=== PATIENT | female | born 1960 | race Caucasian/White ===

== ENCOUNTER → 2017-12-01 | Outpatient (CLI) | payer OTHER ==
[~2017-12-01] MED LIST: ALLERGY RELIEF1 EAC3 PO; ASPIRIN325 PO; CLONAZEPAM 0.50.5 M1 PO; FIBER TABS625 MG PO; FISH OIL 1,0001 EAC8 PO; GLUCOSAMINE &1 EAC1 PO; INDERAL LA 80 M80 M1 PO; LEVOTHYROXIN0.025 MG PO; METFORMIN HCL500 MG PO; NAMENDA XR28 MG PO; NAMENDA XR7 MG PO; PAXIL10 MG PO; VITAMIN B-12500 MCG PO; VITAMIN D3400 UNIT PO; VITAMINC500 PO; WELLBUTRIN SR100 MG PO; ZONEGRAN100 MG PO
== END ==
LOC: M.RAD 13:24
DX: C50.911 Malignant neoplasm of unspecified site of right female breast (principal)

== ENCOUNTER → 2018-01-03 | Outpatient (CLI) | payer OTHER ==
--- NOTE | 2018-01-13 13:49 | ONC ---
[place] [address] RADIATION ONCOLOGY NOTE Name: JHOANALEATHA A Room: [facility]#: [id number] Admission: 01/03/18 Attend Phys: Ehsan Wang MD Discharge: Date of : 62 Report #: [id number] THIS REPORT FOR: //name// CC: Ehsan Choudhury MD DATE OF SERVICE: 01/03/2018 REFERRING PHYSICIANS: Include Martin Cohn MD; Dr. Oliva, and Ryan Choudhury MD. [facility] phone is [phone]. 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 Radiation treatments were completed on 03/26/2015. INTERVAL NOTE: The patient denied having any suspicious palpable masses involving the right breast. The patient denied having any suspicious palpable masses involving the left breast. She denied having any nipple discharge from the right breast. She denied having any nipple discharge from the left breast. MEDICATIONS: Include metformin, bupropion, propranolol, Namenda XR, pramipexole, carbidopa/levodopa, clonazepam. SOCIAL HISTORY: The patient is . She has a son and a daughter. Cigarettes: she does not smoke cigarettes. She is a teacher at [employer]. REVIEW OF SYSTEMS: RESPIRATORY: The patient was not short of breath during her appointment. MUSCULOSKELETAL: She had good range of motion of her upper extremities. PHYSICAL EXAMINATION: With my nurse, Arti Garza, present: VITAL SIGNS: The patient weighed 209 pounds on 01/03/2018 and 203.2 pounds on 01/09/2017, on 01/03/2018 blood pressure was 144/89, pulse 68, respirations 18, oxygen saturation 99%. LYMPH NODES: The patient had no palpable cervical, supraclavicular or axillary lymphadenopathy. HEART: Had a regular rate and rhythm without murmur. LUNGS:were clear to auscultation. BREASTS: Left breast had no suspicious palpable masses. Right breast had no suspicious palpable masses. ABDOMEN: [place] [address] RADIATION ONCOLOGY NOTE Name: LEATHA ELY Room: [facility]#: [id number] Admission: 01/03/18 Attend Phys: Ehsan Wang MD Discharge: Date of : 62 Report #: [id number] tender. Spleen was not palpable. Liver was at the costal margin. RADIOLOGIC DATA: From 12/01/2017 from [facility], the patient had a bilateral mammogram that revealed benign findings. Annual screening mammography was recommended. ASSESSMENT AND PLAN: 1. History of ductal carcinoma in situ of the right breast- There is no evidence of breast cancer at this time. A requisition was written for a bilateral mammogram in 11/2018 or 12/2018. The patient was asked to schedule a follow up appointment to see me after the mammogram. 2. Diabetes- The patient is taking metformin and that is managed by her referring physicians. 3. Hypertension- The patient takes propranolol and that is managed by her referring physicians. Thank you for allowing me to participate in the care of this patient. <ELECTRONICALLY SIGNED> By: Ehsan Wang MD 01/13/18 1349 [id number] Wang MD /nt
== END ==
LOC: M.RTH 01-01 15:00
DX: Z08 Encounter for follow-up examination after completed treatment for malignant neoplasm (principal); E11.9 Type 2 diabetes mellitus without complications; I10 Essential (primary) hypertension; Z86.000 Personal history of in-situ neoplasm of breast

== ENCOUNTER → 2018-12-04 | Outpatient (CLI) | payer OTHER | LOC: M.RAD 12-03 14:00 | DX: R92.8 Other abnormal and inconclusive findings on diagnostic imaging of breast (principal); Z85.3 Personal history of malignant neoplasm of breast ==

== ENCOUNTER → 2018-12-28 | Outpatient (CLI) | payer OTHER ==
--- NOTE | ~2018-12-28 | ONC ---
[place] [address] RADIATION ONCOLOGY NOTE Name: LEATHA ELY Room: [facility] [address]#: [id number] Admission: 12/28/18 Attend Phys: Ehsan Wang MD Discharge: Date of : 62 Report #: [id number] THIS REPORT FOR: //name// CC: Ehsan Cohn DATE OF SERVICE: 12/28/2018 RADIATION ONCOLOGY FOLLOWUP NOTE REFERRING PHYSICIANS: Dr. Martin Cohn and Dr. Oliva and Dr. Ryan Choudhury. DEPARTMENT: [facility], phone is [phone]. 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 Radiation treatments were completed on 03/26/2015. INTERVAL NOTE: The patient denied having any suspicious palpable masses involving the right breast. The patient denied having any suspicious palpable masses involving the left breast. She denied having any nipple discharge from the right breast. She denied having any nipple discharge from the left breast. MEDICATIONS: At this time include, metformin, pramipexole, carbidopa/levodopa, clonazepam, glucosamine, aspirin, propranolol, Lexapro, and rasagiline. SOCIAL HISTORY: The patient is . She has a son and a daughter. 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 Cigarettes, she does not smoke cigarettes. REVIEW OF SYSTEMS: RESPIRATORY: The patient was not short of breath during her appointment. MUSCULOSKELETAL: She had good range of motion of her upper extremities. PHYSICAL EXAMINATION: With my nurse, Arti Garza, present: VITAL SIGNS: Weight was 211.6 pounds and she was 209 pounds on 12/28/2018. On 12/28/2018, blood pressure is 130/74, pulse 63, respirations 18, and oxygen saturation 99%. LYMPH NODES: The patient had no palpable cervical or supraclavicular or axillary lymphadenopathy. HEART: Had a regular rate and rhythm, without murmur. LUNGS: Clear to auscultation. BREASTS: Left breast had no suspicious palpable masses. Right breast had no suspicious palpable masses. ABDOMEN: Nontender. Spleen is not palpable. Liver was at the costal margin. RADIOLOGIC DATA: From 12/04/2018, the patient had a bilateral mammogram, [place] [address] RADIATION ONCOLOGY NOTE Name: LEATHA ELY GABRIELLA Room: [facility]#: [id number] Admission: 12/28/18 Attend Phys: Ehsan Wang MD Discharge: Date of : 62 Report #: [id number] showed benign findings and routine annual mammogram was recommended. ASSESSMENT AND PLAN: 1. History of ductal carcinoma in situ of the right breast. There is no evidence of breast cancer at this time. A requisition was written for bilateral mammogram in about 1 year and the patient was asked to schedule a followup appointment to see me afterwards. 2. Diabetes. The patient takes metformin that is managed by her referring physicians. 3. Hypertension. The patient takes propranolol and that is managed by her referring physicians. Thank you for allowing me to participate in the care of this patient. By: 1151 [id number] Wang MD /nt
== END ==
LOC: M.RTH 05:06
DX: Z08 Encounter for follow-up examination after completed treatment for malignant neoplasm (principal); E11.9 Type 2 diabetes mellitus without complications; I10 Essential (primary) hypertension; Z85.3 Personal history of malignant neoplasm of breast

== ENCOUNTER → 2019-12-05 | Outpatient (CLI) | payer OTHER | LOC: M.RAD 14:00 | PROVIDERS: ATTEND Radiology Radiation Oncology | DX: Z85.3 Personal history of malignant neoplasm of breast (principal) ==

== ENCOUNTER → 2020-01-03 | Outpatient (CLI) | payer OTHER ==
--- NOTE | 2020-01-05 11:22 | ONC ---
[address] [address] RADIATION ONCOLOGY NOTE Name: LEATHA ELY GABRIELLA Room: [facility].#: [id number] Admission: 01/03/20 Attend Phys: Ehsan Wang MD Discharge: Date of : 62 Report #: [id number] THIS REPORT FOR: //name// CC: Ehsan Pardo DATE OF SERVICE: 01/03/2020 RADIATION ONCOLOGY FOLLOWUP NOTE REFERRING PHYSICIANS: Ryan Real MD, Dr. Oliva, Dr. Madeleine Pardo [facility] phone is [phone]. 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 Radiation treatments were completed on 03/26/2015. INTERVAL NOTE: The patient denied having any suspicious palpable masses involving the right breast. The patient denied having any suspicious palpable masses involving the left breast. She denied having any nipple discharge from the right breast. She denied having any nipple discharge from the left breast. She indicated that few weeks ago she had a stimulator placed into her brain to help treat her tremors for Parkinson's disease. MEDICATIONS: Metformin, propranolol, pramipexole, carbidopa/levodopa, clonazepam as needed, Lexapro, and melatonin. SOCIAL HISTORY: The patient is . She has a son and a daughter. 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 Cigarettes; she does not smoke cigarettes. REVIEW OF SYSTEMS: RESPIRATORY: The patient was not short of breath during her appointment. MUSCULOSKELETAL: She had good range of motion of her upper extremities. PHYSICAL EXAMINATION: With my nurse, Arti Garza, present. VITAL SIGNS: Weight is 237.6 pounds on 01/03/2020 and 211.6 pounds on 12/29/2019. On 01/03/2020, blood pressure was 155/86, pulse 68, respirations 24, oxygen saturation was 97% on room air and temperature 98.5 degrees Fahrenheit. Again, she was seen with my nurse, Arti Garza, present. LYMPH NODES: She had no palpable cervical [place] [address] RADIATION ONCOLOGY NOTE Name: LEATHA ELY GABRIELLA Room: [facility]#: [id number] Admission: 01/03/20 Attend Phys: Ehsan Wang MD Discharge: Date of : 62 Report #: [id number] lymphadenopathy. HEART: Had a regular rate and rhythm without murmur. LUNGS: were clear to auscultation. BREASTS: Left breast had no suspicious palpable masses. Right breast had no suspicious palpable masses. It looked like that stimulator battery was placed by the left clavicle. ABDOMEN: Not tender, spleen was not palpable. Liver was at the costal margin. EXTREMITIES: Had no clubbing, cyanosis or edema. RADIOLOGIC DATA: The patient had a bilateral mammogram on 12/05/2019, which revealed benign findings. ASSESSMENT AND PLAN: 1. History of ductal carcinoma in situ of the right breast- There is no evidence of breast cancer at this time. A requisition was written for a screening bilateral mammogram in about 1 year and the patient was asked to schedule a followup appointment to see me afterwards. 2. History of tremor -- The patient had a stimulator placed and her tremors appear to be significantly improved. She follows up with her neurologist, Dr. Oliva. 3. Glucose intolerance- The patient takes metformin that is managed by her referring physicians. 4. Hypertension-The patient takes propranolol and that is managed by her referring physicians. Thank you for allowing me to participate in the care of this patient. <ELECTRONICALLY SIGNED> By: Ehsan Wang MD 01/05/20 1122 1136 [id number] Wang MD /nt
== END ==
LOC: M.RTH 10:30
PROVIDERS: ATTEND Radiology Radiation Oncology
DX: Z08 Encounter for follow-up examination after completed treatment for malignant neoplasm (principal); Z85.3 Personal history of malignant neoplasm of breast; Z92.3 Personal history of irradiation

== ENCOUNTER → 2021-01-11 | Outpatient (CLI) | payer MEDICARE | LOC: M.RAD 12:35 | PROVIDERS: ATTEND Radiology Radiation Oncology | DX: Z12.31 Encounter for screening mammogram for malignant neoplasm of breast (principal); Z85.3 Personal history of malignant neoplasm of breast ==